=== PATIENT | male | born 1945 | race Caucasian/White ===

== ENCOUNTER 2019-11-11 22:01 | Emergency (ER) | payer MEDICARE ==
[~2019-11-11] VITALS: Ht 180.3 cm; Wt 79.4 kg
[~2019-11-11 22:01] MED LIST: ASPIRIN EC325 M1 PO; GLIPIZIDE XL10 MG PO; JANUVIA50 MG PO; LIPITOR 20 MG T20 M1 PO
[2019-11-11 23:06] LABS: ABSOLUTE BASOPHILS 0.1 thou/uL (0.0-0.2); ABSOLUTE EOSINOPHILS 0.2 thou/uL (0.0-0.7); ABSOLUTE LYMPHOCYTES 2.3 thou/uL (0.8-5.3); ABSOLUTE MONOCYTES 0.7 thou/uL (0.0-1.2); ABSOLUTE NEUTROPHILS 9.1 thou/uL (1.6-8.1); BASOPHILS 0.6 %; EOSINOPHILS 1.6 %; HEMATOCRIT 44.6 % (42.0-52.0); HEMOGLOBIN 15.2 gm/dL (14.0-18.0); LYMPHOCYTES 18.8 %; MCH 31.6 pg (26.0-34.0); MCHC 34.1 g/dL (28.0-37.0); MCV 92.7 fL (80.0-100.0); MONOCYTES 5.5 %; MPV 7.3 fl. (7.2-11.1); NUCLEATED RBCS 0 /100WBC; PLATELET COUNT* 258 thou/uL (150-400); POLYS 73.5 %; RBC 4.81 mil/uL (4.50-6.00); RDW-CV 13.6 % (10.5-14.5); WBC 12.4 thou/uL (4.0-11.0)
[2019-11-11 23:17] LABS: CALCIUM 8.4 mg/dL (8.5-10.1); CREATININE 1.5 mg/dL (0.6-1.3); POTASSIUM 4.3 mmol/L (3.5-5.1)
[2019-11-11 23:21] LABS: ALBUMIN 3.6 g/dL (3.4-5.0); TOTAL BILIRUBIN 0.3 mg/dL (<0.1-1.0); TOTAL PROTEIN 7.1 g/dL (6.4-8.2)
[2019-11-11] MEDS ORDERED: PREDNISONE50 MG PO (23:43)
[2019-11-11 23:53] VITALS: BP 114/62
--- NOTE | 2019-11-12 09:37 | EKG ---
[place] [address] ELECTROCARDIOGRAM REPORT Name: SHANAAUSTYNMARKJALEEL Dale Room: [facility]#: [id number] Admission: 11/11/19 Attend Phys: Discharge: 11/11/19 Date of : 41 Date of Service: 11/11/192239 Report #: [id number] THIS REPORT FOR: //name// [facility] ED Test Date: 2019-11-11 Test Time: 22:40:40 Pat Name: JALEEL FRANKS Department: Room: Gender: Router Operator: : 1945 Requested By: Alexandria Vincent Order Number: [id number] MD: Desean Faria Measurements Intervals [place]bert Rate: 87 P: 20 OK: 228 QRS: -65 QRSD: 143 T: -1 QT: 380 QTc: 457 Interpretive Statements Sinus rhythm Prolonged OK interval Right bundle branch block No previous ECG available for comparison Electronically Signed On 11-12-2019 9:36:33 CDT by Desean Faria [email or web address] <ELECTRONICALLY SIGNED> By: Desean Faria MD, [facility] 11/12/19 [id number] Desean Faria MD, FACC /EPI
== END 2019-11-11 23:53 | disposition home or self-care (01) ==
LOC: M.ERS 22:01
PROVIDERS: Emergency Medicine
DX: L50.9 Urticaria, unspecified (principal); T78.40XA Allergy, unspecified, initial encounter; R42 Dizziness and giddiness; E11.9 Type 2 diabetes mellitus without complications; Z85.46 Personal history of malignant neoplasm of prostate; Z88.0 Allergy status to penicillin; X58.XXXA Exposure to other specified factors, initial encounter